=== PATIENT | male | born 2000 | race Caucasian/White ===

== ENCOUNTER 2021-08-26 11:52 | Emergency (ER) | payer OTHER ==
[2021-08-26 12:02] VITALS: BP 129/78
--- NOTE | 2021-08-26 12:37 | ED Physician Documentation ---
History of Present Illness - Stated complaint Stated Complaint: MALE - Chief complaint Chief Complaint: General - History obtained from History obtained from: Patient - Additonal information Additional information: 20-year-old gentleman, healthy active duty in the [employer] presents with a lump on the left side of the scrotum its been there for a little less than a week and seems to be growing and causing some discomfort. He has a known cyst on the scrotum that is not growing more anteriorly on that side. He has not been sexually active in a few months. He is really not concerned about STDs. Review of Systems Constitutional: reports: Reviewed and negative Eyes: reports: Reviewed and negative Ears: reports: Reviewed and negative Nose: reports: Reviewed and negative Cardiac: reports: Reviewed and negative PD PAST MEDICAL HISTORY - Present Medications Home Medications: Ambulatory Orders Medication Instructions Recorded Confirmed cephALEXin [Keflex] 500 mg PO Q6H #28 cap 08/26/21 - Allergies Allergies/Adverse Reactions: Allergies Allergy/AdvReac Type Severity Reaction Status Date / Time No Known Drug Allergies Allergy Verified 08/26/21 12:02 PD ED PE NORMAL - Vitals Vital signs reviewed: Yes - General General: Alert and oriented X 3, No acute distress - Male Male : Other (On the anterior part of the left scrotum there is a small subcutaneous cyst, not tender, more laterally and superiorly there is a mass also probably consistent with a slightly deeper cyst measuring about 1 cm round. Not pointed or fluctuant. No cellulitis.) - Derm Derm: Normal color, Warm and dry - Neuro Neuro: Alert and oriented X 3, Normal speech Results - Vitals Vitals: Vital Signs - 24 hr 08/26/21 11:59 Temperature 36.4 C L Heart Rate 66 Respiratory 18 Rate Blood Pressure 129/78 O2 Saturation 98 Oxygen O2 Source Room air - Rads (name of study) Scrotal sono Radiology: EMP read contemporaneously (small subq cyst) Departure - Departure Disposition: 01 Home, Self Care Clinical Impression: Scrotal cyst Condition: Good Record reviewed to determine appropriate education?: Yes Instructions: ED Cyst Sebaceous Infec Abx Tx Prescriptions: cephALEXin [Keflex] 500 mg PO Q6H #28 cap Comments: As discussed, it appears that you have a tiny cyst in your scrotal wall. Right now it measures only about 2 mm around, think the size of a grain of rice or so. As such I do not think it is amenable to drainage with a needle or scalpel at this point. If it progresses please return for reevaluation. Otherwise hopefully the antibiotics will take down the inflammation. [place] Follow[place]up with your flight surgeon on around Tuesday for recheck. Discharge Date/Time: 08/26/21 13:44
--- NOTE | 2021-08-26 14:57 | Ultrasound Report ---
PROCEDURE: Testicle w/Doppler INDICATIONS: scrotal mass left TECHNIQUE: Real-time scanning was performed of the scrotum and testicles, with image documentation. Color and p ulse Doppler interrogation was performed of both testicles. COMPARISON: None. FINDINGS: Right: Testicle is normal in size at 4.6 x 1.9 x 2.8 cm, and homogenous in echotexture. Epididymis is normal in overall size and morphology. No varicocele. Small hydrocele. Overlying scrotal skin is normal in thickness. Left: Testicle is normal in size at 4.3 x 1.8 x 2.8 cm, and homogeneous in echotexture. Epididymis is normal in overall size and morphology. No hydrocele or varicoceles. Overlying scrotal skin is no rmal in thickness. Palpable area corresponds to a tiny subcutaneous cyst, along the left scrotal wall , measuring 0.2 x 0.1 x 0.2 cm. Doppler: Color and pulse Doppler demonstrate normal and symmetric arterial flow in both testicles. IMPRESSION: 1. Normal-appearing testicles with normal flow. No masses. 2. Palpable area of concern corresponds to a very small subcutaneous cyst along the left scrotal wall measuring 0.2 x 0.1 x 0.2 cm. Reviewed by: Felix Concepcion MD on 08/26/2021 2:55 PM PDT Approved by: Felix Concepcion MD on 08/26/2021 2:55 PM PDT Station ID: [id number]
== END 2021-08-26 13:44 | disposition home or self-care (01) ==
LOC: ED 11:52
DX: L72.9 Follicular cyst of the skin and subcutaneous tissue, unspecified (principal)
CPT/HCPCS: 93975; 99282; 99284

== ENCOUNTER 2022-03-03 19:42 | Outpatient (CLI) | payer OTHER | END 2022-03-03 19:43 | disposition home or self-care (01) | LOC: SC 19:42 | PROVIDERS: ATTEND Internal Medicine Pulmonary Disease | DX: R06.83 Snoring (principal); G47.8 Other sleep disorders; R06.81 Apnea, not elsewhere classified; G47.10 Hypersomnia, unspecified | CPT/HCPCS: 95810 ==